=== PATIENT | female | born 1970 | race African-American/Black ===

== ENCOUNTER 2019-08-21 17:53 | Emergency (ER) | payer MEDICAID, OTHER ==
[~2019-08-21] VITALS: Ht 162.6 cm; Wt 88.5 kg
[2019-08-21] MEDS ORDERED: IBUPROFEN 800 MG TAB PO ONE (19:00)
[2019-08-21] MEDS ORDERED: fentaNYL CITRATE 100 MCG/2 ML VL IV ONE (19:30)
[2019-08-21] MEDS ORDERED: KETOROLAC TROMETH 30 MG/ML 1ML VIAL IV ONE (19:30)
[2019-08-21 20:26] VITALS: BP 132/81
== END 2019-08-21 22:02 | disposition home or self-care (01) ==
LOC: EDBD 17:53 → ER 17:53
DX: S89.92XA Unspecified injury of left lower leg, initial encounter (principal); S59.912A Unspecified injury of left forearm, initial encounter; R51 Headache; M54.2 Cervicalgia; Z88.0 Allergy status to penicillin; Z98.51 Tubal ligation status; V43.52XA Car driver injured in collision with other type car in traffic accident, initial encounter; Y93.89 Activity, other specified; Y99.8 Other external cause status; Y92.410 Unspecified street and highway as the place of occurrence of the external cause
CPT/HCPCS: 70450; 72125; 72131; 73060; 73090; 73560